=== PATIENT | female | born 1925 | race Caucasian/White ===

== ENCOUNTER 2017-04-08 23:22 | Emergency (ER) | payer MEDICARE, OTHER ==
[~2017-04-08 23:22] MED LIST: ISOVUE-370 76%-LOCM 1 ML ONE
[2017-04-08 23:55] LABS: #Basophils 0.1 thou/uL (0.0-0.2); #Eosinphils 0.4 thou/uL (0.0-0.7); #Monocytes 0.6 thou/uL (0.11-0.59); #Neutrophils 4.7 thou/uL (1.40-6.50); %Basophils 0.8 % (0.0-1.0); %Eosinophils 4.8 % (0.0-10.0); %Lymphocytes 25.8 % (21.0-51.0); %Monocytes 8.3 % (0.0-10.0); %Neutrophils 60.3 % (42.0-75.0); Hemoglobin 14.4 g/dL (12.0-16.0); Mean Corpuscular HGB CONC 32.6 g/dL (32.0-36.0); Mean Corpuscular Hemoglobin 31.3 pg (27.0-31.0); Mean Corpuscular Volume 96.1 fl (81.0-99.0); Mean Platelet Volume 6.1 fL (7.4-10.4); Platelet Count 246 thou/uL (130-400); RBC Distribution Width 11.6 % (11.5-14.5); Red Blood Cell (RBC) Count 4.59 mill/uL (4.20-5.40); White Blood Cell (WBC) Count 7.7 thou/uL (4.8-10.8)
[2017-04-09] MEDS ORDERED: Ondansetron ODT 4 MG TAB ONE (00:07)
[2017-04-09 00:12] LABS: ALT (SGPT) 53 U/L (8-55); AST (SGOT) 86 U/L (5-34); Albumin 4.1 g/dL (3.4-4.8); Alkaline Phosphatase 92 U/L (40-150); Anion Gap 12 mmol/L (10-20); BUN (Urea Nitrogen) 10 mg/dL (9.8-20.1); Bilirubin, Total 0.4 mg/dL (0.2-1.2); CK (CPK) 53 U/L (29-168); Calc. Creatinine Clearance 0 mL/min (70-130); Calcium 9.9 mg/dL (7.8-10.44); Carbon Dioxide 27 mmol/L (23-31); Chloride 106 mmol/L (98-107); Estimated GFR-MDRD 58; Globulin 2.5 g/dL (2.4-3.5); Glucose 144 mg/dL (83-110); Lipase 70 U/L (8-78); Potassium 4.2 mmol/L (3.5-5.1); Protein, Total 6.6 g/dL (6.0-8.3); Sodium 141 mmol/L (136-145)
--- NOTE | 2017-04-09 07:54 | RAD ---
PORTABLE CHEST 1 VIEW: DATE: 04/09/17. TIME: 12:03 a.m. HISTORY: Cough and abdominal pain. FINDINGS/IMPRESSION: Comparison is made to the exam of 04/18/15. There are changes of median sternotomy. The heart size is prominent. A large hiatal hernia is prese nt. The aorta is tortuous. The lungs are expanded with focal areas of consolidation, pneumothorax, or pleural effusions. There are degenerative changes in the shoulder joints. POS: OFF
--- NOTE | 2017-04-09 08:09 | CT ---
PRELIMINARY REPORT/[facility]/EMERGENCY AFTER HOURS PROCEDURE: EXAM: CT Abdomen and Pelvis With Intravenous Contrast EXAM DATE/TIME: Exam ordered 04/09/2017 12:27 AM CLINICAL HISTORY: 89 years old, female; Pain; Abdominal pain; Generalized TECHNIQUE: Axial computed tomography images of the abdomen and pelvis with intravenous contrast. Coronal reformatted images were created and reviewed. CONTRAST: 70 mL of ISOVUE administered intravenously. COMPARISON: No relevant prior studies available. FINDINGS: Lower thorax: Partially intrathoracic chronic gastric volvulus. Left basilar atelectasis. ABDOMEN: Liver: There are multiple cysts measuring up to 1.3 cm in size adjacent to the posterior aspect of th e inferior tip of the liver and in the extreme lateral right retroperitoneal fat. Gallbladder and bile ducts: Prior cholecystectomy. No ductal dilation. Pancreas: Unremarkable. No mass. No ductal dilation. Spleen: Unremarkable. No splenomegaly. Adrenals: Unremarkable. No mass. Kidneys and ureters: Round hypodense lesion of the right kidney does not meet strict CT criteria for a simple cyst and is indeterminate, potentially a hyperdense cyst. It measures 1.4 cm and 25 Hounsfie ld units. Stomach and bowel: Colonic diverticulosis. No diverticulitis. Appendix: Appendix not visualized. No evidence of appendicitis. PELVIS: Bladder: Unremarkable. No mass. Reproductive: Unremarkable as visualized. ABDOMEN and PELVIS: Intraperitoneal space: Unremarkable. No free air. No significant fluid collection. Bones/joints: Scoliosis and degenerative change. No acute fracture. No dislocation. Soft tissues: Bilateral fat containing inguinal hernias. Vasculature: Multifocal AAA measuring up to 3.6 cm in caliber. 2.2 cm right common iliac artery aneur ysm. 1.7 cm left common iliac artery aneurysm. No rupture or dissection. Lymph nodes: Unremarkable. No enlarged lymph nodes. Other findings: Incompletely visualized extensive aortic valve calcification suggests some degree of aortic valve stenosis. IMPRESSION: 1. Incompletely visualized extensive aortic valve calcification suggests some degree of aortic valve stenosis. 2. Indeterminate right renal lesion as above, potentially a hyperdense cyst. 3. Chronic findings as above. Thank you for allowing us to participate in the care of your patient. Dictated and Authenticated by: Jonathan Willett MD 04/09/2017 1:18 AM Central Time ([place] & [place]) FINAL REPORT CT ABDOMEN AND MERRILL WITH IV CONTRAST: I agree with the preliminary report given by Dr. Jonathan Willett of [facility]. POS: OFF
== END 2017-04-09 02:17 | disposition home or self-care (01) ==
LOC: ERS 23:22
DX: R10.13 Epigastric pain (principal); I25.10 Atherosclerotic heart disease of native coronary artery without angina pectoris; I10 Essential (primary) hypertension; Z86.73 Personal history of transient ischemic attack (TIA), and cerebral infarction without residual deficits; Z79.899 Other long term (current) drug therapy
CPT/HCPCS: 36415; 71045; 74177; 80053; 82550; 83690; 85025; 93005; 96361; 96374; J2270; Q0162